=== PATIENT | male | born 1940 | race Two or more races ===

== ENCOUNTER 2018-03-12 06:08 | Day surgery (SDC) | payer OTHER ==
[2018-03-11 17:11] VITALS: BMI 26.6
[~2018-03-12 06:08] MED LIST: ACETAMINOPHEN 325 MG TABLET (FP) PO PRN; CHONDROITIN SU A/HYALUR SOD 1 KIT IO ONE; CYCLOPENTOLATE HCL 1% OPHTH SOLN 2 ML BOTTLE OP SCH; EPINEPHrine/PF 1 MG/1 ML (1:1,000) AMPULE SQ ONE; FLURBIPROFEN 0.03% OPHTH SOLN 2.5 ML BOTTLE OP SCH; LIDOCAINE HCL 1% PRESERVATIVE FREE - 30ML VIAL IO ONE; OFLOXACIN 0.3% OPHTHALMIC SOLUTION 5 ML BOTTLE OP SCH; PHENYLEPHRINE 2.5% OPHTH SOLN 15 ML BOTTLE OP SCH; TETRACAINE 0.5% OPHTH SOLN 2 ML BOTTLE TP ONE; TROPICAMIDE 1% OPHTH SOLN 15 ML BOTTLE OP SCH; TRYPAN BLUE 0.5 ML DISP.SYRIN IO ONE
[2018-03-12] MEDS ORDERED: FLURBIPROFEN 0.03% OPHTH SOLN 2.5 ML BOTTLE ONE (06:27)
[2018-03-12] MEDS ORDERED: OFLOXACIN 0.3% OPHTHALMIC SOLUTION 5 ML BOTTLE ONE (06:28)
[2018-03-12] MEDS ORDERED: TROPICAMIDE 1% OPHTH SOLN 15 ML BOTTLE ONE (06:28)
[2018-03-12] MEDS ORDERED: PHENYLEPHRINE 2.5% OPHTH SOLN 15 ML BOTTLE ONE (06:28)
[2018-03-12] MEDS ORDERED: CYCLOPENTOLATE HCL 1% OPHTH SOLN 2 ML BOTTLE ONE (06:28)
[2018-03-12 06:44] VITALS: TEMP 97.8
[2018-03-12] MEDS ORDERED: PHENYLEPHRINE 2.5% OPHTH SOLN 15 ML BOTTLE OS ONE ×3 (06:50→07:09)
[2018-03-12] MEDS ORDERED: CYCLOPENTOLATE HCL 1% OPHTH SOLN 2 ML BOTTLE OS ONE ×3 (06:50→07:09)
[2018-03-12] MEDS ORDERED: OFLOXACIN 0.3% OPHTHALMIC SOLUTION 5 ML BOTTLE OS ONE ×3 (06:50→07:10)
[2018-03-12] MEDS ORDERED: TROPICAMIDE 1% OPHTH SOLN 15 ML BOTTLE OS ONE ×3 (06:50→07:10)
[2018-03-12] MEDS ORDERED: FLURBIPROFEN 0.03% OPHTH SOLN 2.5 ML BOTTLE OS ONE ×3 (06:50→07:09)
[2018-03-12] MEDS ORDERED: TRYPAN BLUE 0.5 ML DISP.SYRIN ONE (07:05)
[2018-03-12] MEDS ORDERED: CHONDROITIN SU A/HYALUR SOD 1 KIT ONE (07:05)
[2018-03-12] MEDS ORDERED: VANCOMYCIN 500 MG VIAL (RESTRICTED TO ID ONLY) ONE (07:10)
[2018-03-12] MEDS ORDERED: EPINEPHrine/PF 1 MG/1 ML (1:1,000) AMPULE ONE (07:10)
[2018-03-12] MEDS ORDERED: WATER FOR INJ,STERILE 10 ML ONE (07:11)
[2018-03-12] MEDS ORDERED: POVIDONE-IODINE 5% OPHTHALMIC PREP 30 ML SOLUTION ONE (07:11)
[2018-03-12] MEDS ORDERED: LIDOCAINE HCL/PF 1% SDV 5ML VIAL ONE (07:11)
[2018-03-12] MEDS ORDERED: TETRACAINE 0.5% OPHTH SOLN 2 ML BOTTLE ONE (07:11)
[2018-03-12] MEDS ORDERED: BUPIVACAINE HCL/PF 0.75% 10 ML VIAL ONE (07:53)
[2018-03-12] MEDS ORDERED: LIDOCAINE HCL/PF 2% SDV 5ML VIAL ONE ×2 (07:53→08:01)
[2018-03-12] MEDS ORDERED: PROPOFOL 20 ML ONE (08:01)
[2018-03-12] MEDS ORDERED: MIDAZOLAM HCL 2 MG/2 ML SINGLE DOSE VIAL ONE (08:08)
[2018-03-12] MEDS ORDERED: BUPIVACAINE HCL/PF 0.75% 10 ML VIAL PNB ONE ×2 (08:12→08:13)
[2018-03-12] MEDS ORDERED: LIDOCAINE HCL/PF 2% SDV 5ML VIAL PNB ONE (08:12)
[2018-03-12] MEDS ORDERED: LIDOCAINE HCL/PF 2% SDV 5ML VIAL INF ONE (08:13)
[2018-03-12] MEDS ORDERED: LIDOCAINE HCL 1% PRESERVATIVE FREE - 30ML VIAL IO ONE (08:28)
[2018-03-12] MEDS ORDERED: CHONDROITIN SU A/HYALUR SOD 1 KIT IO ONE (08:29)
[2018-03-12] MEDS ORDERED: TRYPAN BLUE 0.5 ML DISP.SYRIN IO ONE (08:29)
[2018-03-12] MEDS ORDERED: EPINEPHrine/PF 1 MG/1 ML (1:1,000) AMPULE SQ ONE (08:31)
[2018-03-12 11:16] VITALS: BP 120/60; PULSE 60
--- NOTE | 2018-03-12 11:38 | OP ---
DATE OF OPERATION: 03/12/2018 PREOPERATIVE DIAGNOSIS: Cataract, left eye. POSTOPERATIVE DIAGNOSIS: Mature cataract, left eye. PROCEDURE: Phacoemulsification of left cataract with capsular staining with Trypan blue and posterior chamber intraocular lens implantation, lens used [id number], 21.5 diopter power, serial No. [id number]. SURGEON: Cira Vazquez M.D. ANESTHESIA: Peribulbar/Modified Van Lint/MAC. COMPLICATIONS: None. DESCRIPTION OF PROCEDURE: The patient was brought into the operating room and correctly identified along with the operative site as well as correct intraocular lens briggs. He was then given a peribulbar block under sedation with 5 mL of a 1:1 mixture of 2% Lidocaine and 0.75% Bupivacaine; 1 mL of the same mixture was given as a modified Van Lint. The eye was then prepped and draped in the usual sterile fashion including 5% Betadine solution in the conjunctival sac and an eyelid drape. The patient was noted to start shaking his legs prior to beginning the surgery. As there was a language barrier, his daughter was brought into the OR to calm the patient down and for communication. An eyelid speculum was then placed into the left eye. The cataract was inspected and a poor red reflex was noted. A paracentesis was created and 0.5 mL of 1% preservative-free lidocaine was given. Beneath an air bubble, the capsule was then stained with Trypan blue and replaced with further lidocaine. Viscoelastic was placed into the eye, and a temporal clear corneal wound was created. A continuous circular capsulorrhexis was performed. The nucleus was hydro-dissected with BSS and removed with phacoemulsification. The nucleus was noted to be dense and more phacoemulsification energy was required to emulsify each quadrant. However, the phaco tip was kept in the iris plane during this portion of the surgery. The remaining cortical material was irrigated and aspirated from the eye. The viscoelastic was injected to inflate the capsular bag, and the lens was then injected into the capsular bag. The viscoelastic was then irrigated and aspirated from the eye, and all wounds were tested and found to be watertight. No suture was placed. Topical vancomycin given. The eye patched and shielded, and the patient was discharged from the operating room in a stable condition. ICRA VAZQUEZ M.D. /[id number] MTDD
== END 2018-03-12 10:10 | disposition home or self-care (01) ==
LOC: JASU-SURG 06:08
PROVIDERS: ATTEND Ophthalmology
PROC: 08RK3JZ Replacement of Left Lens with Synthetic Substitute, Percutaneous Approach (ICD-10-PCS; principal; 2018-03-12 08:00)
DX: H25.092 Other age-related incipient cataract, left eye (principal); H57.8 Other specified disorders of eye and adnexa
CPT/HCPCS: 82962

== ENCOUNTER 2020-06-21 04:50 | Day surgery (SDC) | payer OTHER ==
[2020-06-20 11:31] VITALS: BMI 28.1
[2020-06-21] MEDS ORDERED: PROPOFOL 20 ML ONE ×2 (06:56→08:08)
[2020-06-21] MEDS ORDERED: EPHEDRINE SULFATE/0.9% NACL/PF 50 MG/10 ML SYRINGE NR ONE (06:56)
[2020-06-21] MEDS ORDERED: SUCCINYLCHOLINE CHLORIDE 200 MG/10 ML SYRINGE ONE (06:56)
[2020-06-21] MEDS ORDERED: ceFAZolin SODIUM 1 GM VIAL ONE (06:56)
[2020-06-21] MEDS ORDERED: DEXAMETHASONE SOD PHOSPHATE 4 MG/1 ML VIAL ONE (06:56)
[2020-06-21] MEDS ORDERED: LIDOCAINE HCL/PF 2% SDV 5ML VIAL ONE (06:59)
[2020-06-21] MEDS ORDERED: ROCURONIUM BROMIDE 50 MG/5 ML SYRINGE ONE (07:41)
[2020-06-21] MEDS ORDERED: ceFAZolin SODIUM 1 GM VIAL IVPB ONE (07:50)
[2020-06-21] MEDS ORDERED: NEOSTIGMINE METHYLSULFATE 0.5 MG/1 ML - 10 ML MDV ONE (08:08)
[2020-06-21] MEDS ORDERED: GLYCOPYRROLATE 0.2 MG/1 ML VIAL ONE ×2 (08:08→08:29)
[2020-06-21] MEDS ORDERED: METOPROLOL TARTRATE 5 MG/5 ML VIAL ONE (08:32)
--- NOTE | 2020-06-21 08:42 | OP ---
Operative Note - Note: Operative Date: 06/21/20 Pre-Operative Diagnosis: large bladder tumor Operation: TURBT Post-Operative Diagnosis: Same as Pre-op Surgeon: Kuldeep Preston Anesthesia: General Specimens Removed: bladder tumor Estimated Blood Loss (mls): 5 Operative Report Dictated: Yes
[2020-06-21] MEDS ORDERED: oxyCODONE HCL 5 MG TABLET PO PRN (08:54)
[2020-06-21] MEDS ORDERED: ONDANSETRON 4 MG/2 ML VIAL IVPUSH PRN (08:54)
[2020-06-21] MEDS ORDERED: LACTATED RINGERS SOLUTION 1,000 ML IV SCH (09:00)
--- NOTE | 2020-06-21 10:58 | OP ---
DATE OF OPERATION: DATE OF DICTATION: 06/21/2020 PREOPERATIVE DIAGNOSIS: Very large right-sided bladder tumor. POSTOPERATIVE DIAGNOSIS: Very large right-sided bladder tumor. PROCEDURE: Cystoscopy, transurethral resection of bladder tumor. SURGEON: Andrade Vasquez MD INDICATION: Patient is an 80-year-old male who was noted to have a very large bladder tumor on both CT scan and cystoscopy for gross hematuria. He is taken to the OR resection of tumor. PROCEDURE IN DETAIL: Patient was taken to the OR, placed supine on the table. After cardiac monitoring administered, general anesthesia was established. He was posterior descending artery in dorsal supine position. He was given 2 g of Ancef. The resectoscope was attempted to be inserted into the urethra, but the meatus had to be dilated, and then the 26 resectoscope was inserted into the urethra shortly after dilation without difficulty. Prostatic urethra was 3 cm and visually occlusive. The bladder was visualized. There was a very large tumor encompassing a good portion of the right side of the bladder just superolateral to the right ureteral orifice. No other tumor was noted. The tumor appeared sessile and it was sessile in appearance. Using the bipolar resectoscope the tumor chips were resected and all bleeding was cauterized. Although not the entire tumor was resected, enough tumor was resected into muscle to determine if there was evidence of muscle invasion. The tumor chips were then removed with the Sandraik evacuator and then resectoscope was removed and a 22-[place] Cr was then placed to straight drainage. Optima-tinged urine was retrieved. The patient was then awoken from anesthesia and transferred to recovery in stable condition. There were no complications. Estimated blood loss was minimal. ANDRADE VASQUEZ M.D. [id number]
[2020-06-21 15:19] VITALS: BP 150/72; PULSE 83; TEMP 97.8
--- NOTE | 2020-06-22 15:39 | PATH ---
Surgical Pathology Report Patient Name: SOBIA POWER Med. Rec. #: [id number] /Age/Gender: 1940 (Age: 80) / M Account: [id number] Location: [facility] SUR[facility]ICAL Taken: 06/21/2020 Received: 06/21/2020 Reported: 06/22/2020 Physicians: Kuldeep Preston M.D. 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 NO FLAT CARCINOMA IN SITU (CIS) IDENTIFIED. Comment: Case seen in intradepartmental review with consensus on diagnosis. Findings discussed with Dr. Preston, 06/22/30. Electronically Signed Jennifer Khalil M.D. Gross Description Received in formalin labeled "bladder tumor," is a 3.7 x 3.0 x 0.4 cm aggregate of pink-stovall soft tissue fragments. The formalin is filtered and the specimen is entirely submitted in 3 cassettes. /06/21/2020 saudi/06/21/2020
== END 2020-06-21 12:45 | disposition home or self-care (01) ==
LOC: JASU-SURG 04:50
PROVIDERS: ATTEND Urology
PROC: 0TBB8ZX Excision of Bladder, Via Natural or Artificial Opening Endoscopic, Diagnostic (ICD-10-PCS; principal; 2020-06-21 07:30)
DX: C67.8 Malignant neoplasm of overlapping sites of bladder (principal); I10 Essential (primary) hypertension; E11.9 Type 2 diabetes mellitus without complications; Z79.4 Long term (current) use of insulin; Z79.82 Long term (current) use of aspirin; Z79.84 Long term (current) use of oral hypoglycemic drugs
CPT/HCPCS: 82962; 88307-TC; 94760

== ENCOUNTER 2022-06-13 06:03 | Day surgery (SDC) | payer OTHER ==
[2022-06-08 16:50] VITALS: BMI 27.9
[~2022-06-13 06:03] MED LIST changes: -CHONDROITIN SU A/HYALUR SOD 1 KIT IO ONE; -CYCLOPENTOLATE HCL 1% OPHTH SOLN 2 ML BOTTLE OP SCH; -EPINEPHrine/PF 1 MG/1 ML (1:1,000) AMPULE SQ ONE; -FLURBIPROFEN 0.03% OPHTH SOLN 2.5 ML BOTTLE OP SCH; -LIDOCAINE HCL 1% PRESERVATIVE FREE - 30ML VIAL IO ONE; -OFLOXACIN 0.3% OPHTHALMIC SOLUTION 5 ML BOTTLE OP SCH; -PHENYLEPHRINE 2.5% OPHTH SOLN 15 ML BOTTLE OP SCH; -TETRACAINE 0.5% OPHTH SOLN 2 ML BOTTLE TP ONE; -TROPICAMIDE 1% OPHTH SOLN 15 ML BOTTLE OP SCH; -TRYPAN BLUE 0.5 ML DISP.SYRIN IO ONE
[2022-06-13] MEDS ORDERED: BUPIVACAINE HCL/PF 0.75% 10 ML VIAL ONE (07:27)
[2022-06-13] MEDS ORDERED: PHENYLEPHRINE/KETOROLAC 4 ML VIAL IO ONE ×2 (07:27→11:06)
[2022-06-13] MEDS ORDERED: POVIDONE-IODINE 5% OPHTHALMIC PREP 30 ML SOLUTION ONE (07:28)
[2022-06-13] MEDS ORDERED: TRYPAN BLUE 0.5 ML DISP.SYRIN ONE (07:28)
[2022-06-13] MEDS ORDERED: KETOROLAC TROMETHAMINE 0.5% EYE DROP 1 DROP DROPS ONE (09:31)
[2022-06-13] MEDS ORDERED: CYCLOPENTOLATE HCL 1% OPHTH SOLN 2 ML BOTTLE ONE (09:31)
[2022-06-13] MEDS ORDERED: TROPICAMIDE 0.5% OPHTHALMIC SOLN 15 ML BOTTLE ONE (09:31)
[2022-06-13] MEDS ORDERED: OFLOXACIN 0.3% OPHTHALMIC SOLUTION 5 ML BOTTLE ONE (09:32)
[2022-06-13] MEDS ORDERED: PHENYLEPHRINE 2.5% OPHTH SOLN 15 ML BOTTLE ONE (09:32)
[2022-06-13 09:36] VITALS: RESP 18
[2022-06-13] MEDS: PHENYLEPHRINE 2.5% OPHTH SOLN 15 ML BOTTLE OP SCH ×3 (09:45→09:55)
[2022-06-13] MEDS: TROPICAMIDE 1% OPHTH SOLN 15 ML BOTTLE OP SCH ×3 (09:45→09:55)
[2022-06-13] MEDS: OFLOXACIN 0.3% OPHTHALMIC SOLUTION 5 ML BOTTLE OP SCH ×3 (09:45→09:55)
[2022-06-13] MEDS: CYCLOPENTOLATE HCL 1% OPHTH SOLN 2 ML BOTTLE OP SCH ×3 (09:45→09:55)
[2022-06-13] MEDS: KETOROLAC TROMETHAMINE 0.5% EYE DROP 1 DROP DROPS OP SCH ×3 (09:45→10:02)
[2022-06-13] MEDS ORDERED: PROPOFOL 20 ML ONE (10:32)
[2022-06-13] MEDS ORDERED: LIDOCAINE HCL/PF (2%) 40 MG/2 ML VIAL ONE (10:34)
[2022-06-13] MEDS ORDERED: MIDAZOLAM HCL 2 MG/2 ML SINGLE DOSE VIAL ONE (10:40)
[2022-06-13] MEDS ORDERED: BUPIVACAINE HCL/PF 0.75% 10 ML VIAL RB ONE (10:49)
[2022-06-13] MEDS ORDERED: LIDOCAINE HCL/PF 2% SDV 5ML VIAL INF ONE (10:49)
[2022-06-13] MEDS ORDERED: POVIDONE-IODINE 5% OPHTHALMIC PREP 30 ML SOLUTION OD ONE (10:53)
[2022-06-13] MEDS ORDERED: BSS (NA/CA/MG/K) BALANCED SALT SOLUTION OPHTH SOLN 15 ML BOTTLE IO ONE (10:56)
[2022-06-13] MEDS ORDERED: TRYPAN BLUE 0.5 ML DISP.SYRIN IO ONE (10:59)
[2022-06-13] MEDS ORDERED: LIDOCAINE HCL 1% PRESERVATIVE FREE - 30ML VIAL IO ONE (11:00)
[2022-06-13] MEDS ORDERED: CHONDROITIN SU A/HYALUR SOD 1 KIT IO ONE (11:01)
[2022-06-13 13:40] VITALS: BP 122/66; PULSE 64; TEMP 97.9
== END 2022-06-13 12:20 | disposition home or self-care (01) ==
LOC: JASU-SURG 06:03
PROVIDERS: ATTEND Ophthalmology
PROC: 08RJ3JZ Replacement of Right Lens with Synthetic Substitute, Percutaneous Approach (ICD-10-PCS; principal; 2022-06-13 11:02)
DX: H26.8 Other specified cataract (principal)
CPT/HCPCS: 66984; V2632; 82962; J1097